=== PATIENT | female | born 1945 | race African-American/Black ===

== ENCOUNTER → 2016-05-23 | Outpatient (CLI) | payer MEDICARE ==
[~2016-05-23] MED LIST: ARIMIDEX1 MG PO; CALCIUM PO; DYAZIDE 37.5/251 CAP PO; EFFEXOR PO; EFFEXOR XR PO; VITAMIN D PO; VITAMIN SUPPLEMENT PO; WELLBUTRIN SR PO
--- NOTE | ~2016-05-23 | MY10 ---
[facility] A Service [facility] RADIOLOGY TEXT RESULTS PATIENT: JAIME COCHRAN LOCATION: [facility] : 49 UNIT #: [id number] AGE: [address]: Aaron Gregg MD SEX: F ORDER DR: [id number] [facility]. [place], [place] [address] [id number] O MR#: [id number] Acc #: [id number] NAME: JAIME COCHRAN : 1945 SEX: F STUDY DATE/TIME: 05/23/2016 11:41 UNIT: [facility] ROOM: STUDY DESCRIPTION: MY Mammogram Screen Uni Dig Rt Attending Physician: Aaron Gregg M.D. Referring Physician: Aaron Gregg M.D. Ordering Physician: Aaron Gregg M.D. Primary Care Physician: Charla Talbot M.D. MEDICAL IMAGING REPORT This report is preliminary unless electronic signature is present EXAM Right digital screening mammogram with CAD COMPARISON May 22, 2015, May 19, 2014, May 16, 2013, May 14, 2012, April 29, 2011, April 22, 2010, April 15, 2009, April 01, 2009, March 17, 2008, March 19, 2007, March 15, 2006. INDICATIONS Breast cancer screening. 62-year-old female with history of left breast cancer treated with mastectomy in July 2007. Patient reports rare right breast tenderness. FINDINGS There are scattered fibroglandular densities in the right breast. There are no suspicious findings in the right breast. IMPRESSION 1. No mammographic evidence of malignancy right breast. Clinical correlation with the patient's complaint of right breast pain is recommended. If this is constant, focal and new then focused sonographic evaluation of the area of pain should be performed. Otherwise continued annual screen mammography is recommended. 2. Post left mastectomy for breast cancer. Patients over the age of 40 are entered into a reminder system with target due date for the next mammogram. A result letter will also be sent to the patient. BIRADS: 2 - benign findings [facility] A Service [facility] RADIOLOGY TEXT RESULTS PATIENT: JAIME COCHRAN LOCATION: [facility] : 49 UNIT #: [id number] AGE: [address]: Aaron Gregg MD SEX: F ORDER DR: Dictated by... Nicolas Louis M.D. THIS IS AN ELECTRONICALLY VERIFIED REPORT Nicolas Louis M.D. at 05/25/2016 10:51 AM Laura TD: 05/23/2016 15:10 JOB #: [id number] MEDICAL IMAGING REPORT Page 1 of 1 COPY
== END | disposition home or self-care (01) ==
LOC: CWCC 11:02
DX: Z12.31 Encounter for screening mammogram for malignant neoplasm of breast (principal); Z85.3 Personal history of malignant neoplasm of breast; Z90.12 Acquired absence of left breast and nipple; N64.4 Mastodynia
CPT/HCPCS: G0202